=== PATIENT | female | born 1950 ===

== ENCOUNTER 2016-07-26 17:36 | Emergency (ER) | payer OTHER ==
[2016-07-26 18:06] VITALS: BMI 23.1
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
[2016-07-26] MEDS ORDERED: Tetanus/Diphtheria Toxoids 0.5 ml Syringe IM ONE ×2 (18:14→18:31)
[2016-07-26] MEDS ORDERED: Lidocaine 2% Inj (20ml) INFIL ONE (18:14)
[2016-07-26] MEDS ORDERED: Lidocaine 2% Inj (20ml) ONE (18:30)
--- NOTE | 2016-07-26 19:33 | CT ---
EXAM: CT Head Without Intravenous Contrast CLINICAL HISTORY: 65 years old, female; Injury or trauma; Fall; Initial encounter; Abrasion; Not specified TECHNIQUE: Axial computed tomography images of the head/brain without intravenous contrast. This CT exam was performed using one or more of the following dose reduction techniques: automated exposure control, adjustment of the mA and/or kV according to patient size, and/or use of iterative reconstruction technique. EXAM DATE/TIME: 07/26/2016 6:10 PM COMPARISON: There are no prior studies for comparison. FINDINGS: Brain: There is prominence of sulci, gyri and ventricles. There is no midline shift. There are no intra-axial or extra axial hemorrhage. There is 11 x 10.3 mm mass suggestive of aneurysm relating to the [place] on the left. There are no intra-axial masses. Velazquez-white differentiation is maintained. Ventricles: See above Bony structures: Cranial vault is intact. Soft tissues: There is left frontal scalp bruising with laceration. There are multiple skin basil. There is small amount of cutaneous emphysema. Vasculature: See above Sinuses: There is no acute sinusitis. Ears and mastoids: Middle ears and mastoids unremarkable. Orbits: Orbital contents are unremarkable. IMPRESSION: Scalp laceration, no acute intracranial injury; probable aneurysm relating to the [place] on the left, exact vessel of origin unclear MRA suggested for more complete evaluation as clinically indicated
[2016-07-26 20:35] VITALS: RESP 18; TEMP 98.1
[2016-07-26 20:36] VITALS: BP 126/80; PULSE 61
[2016-07-26 20:38] VITALS: O2SAT 100
== END 2016-07-26 20:45 | disposition left against medical advice (07) ==
LOC: C.ER 17:36
DX: S01.01XA Laceration without foreign body of scalp, initial encounter (principal); W22.8XXA Striking against or struck by other objects, initial encounter; I67.1 Cerebral aneurysm, nonruptured

== ENCOUNTER 2016-07-28 14:05 | Emergency (ER) | payer OTHER ==
[2016-07-28 14:06] VITALS: BMI 23.1
--- NOTE | 2016-07-28 15:33 | C.PDOC ---
History Of Present Illness 65 year old female presents to ED with complaints of frontal headache described as pulsating. Patient states she was seen in ED 2 days ago after head injury and had basil placed. Family at bedside state she had CT show aneurysm and the patient had refused admission at that time. Family requesting further evaluation and admission. Patient otherwise denies any other injury, numbness, weakness, dizziness, visual changes. Time Seen by Provider: 07/28/16 14:59 Chief Complaint (Nursing): Headache History Per: Patient History/Exam Limitations: no limitations Onset/Duration Of Symptoms: Days Current Symptoms Are (Timing): Still Present Quality: Other ("pulsating") Associated Symptoms: denies: Blurred Vision, Nausea, Vomiting Recent travel outside of the [place]: No Past Medical History Reviewed: Historical Data, Nursing Documentation, Vital Signs Vital Signs: Last Vital Signs Temp 98.0 F 07/28/16 16:53 Pulse 61 07/28/16 16:53 Resp 20 07/28/16 16:53 BP 137/83 07/28/16 16:53 Pulse Ox 96 07/28/16 17:04 - Medical History PMH: No Chronic Diseases Surgical History: Appendectomy Family History: States: Unknown Family Hx - Social History Hx Alcohol Use: Yes Hx Substance Use: No - Immunization History Hx Tetanus Toxoid Vaccination: Yes Hx Influenza Vaccination: No Hx Pneumococcal Vaccination: No Review Of Systems Except As Marked, All Systems Reviewed And Found Negative. Constitutional: Negative for: Fever, Chills Cardiovascular: Negative for: Chest Pain Respiratory: Negative for: Cough, Shortness of Breath, Wheezing Gastrointestinal: Negative for: Nausea, Vomiting, Abdominal Pain Skin: Negative for: Rash Neurological: Positive for: Headache. Negative for: Weakness, Numbness, Dizziness Physical Exam - Physical Exam Appears: Non-toxic, No Acute Distress Skin: Warm, Dry Head: Normacephalic, Other ([place] clean dry and intact to frontal scalp, mildly tender, no erythema, swelling or discharge.) Eye(s): bilateral: Normal Inspection, PERRL, EOMI Neck: No Midline Cervical Tenderness, No Paracervical Tenderness, Supple Chest: Symmetrical Cardiovascular: Rhythm Regular, No Murmur Respiratory: Normal Breath Sounds, No Rales, No Rhonchi, No Wheezing Gastrointestinal/Abdominal: Soft, No Tenderness Back: Normal Inspection Extremity: Normal ROM, Capillary Refill (< 2 sec.) Neurological/Psych: Oriented x3, Normal Speech, Normal Cognition, Normal Motor, Normal Sensation ED Course And Treatment - Laboratory Results Result Diagrams: 07/28/16 15:47 07/28/16 15:47 O2 Sat by Pulse Oximetry: 96 (RA) Pulse Ox Interpretation: Normal Medical Decision Making Medical Decision Making: Patient with head injury and incidental finding on CT. CT from 07/26/16 shows Scalp laceration, no acute intracranial injury; probable aneurysm relating to the [place] on the left, exact vessel of origin unclear. MRA ordered. Labs ordered and unremarkable. MRA shows large aneurysm which appears to arise posterior margin of the distal cavernous/supraclinoid carotid artery junction. Case discussed with DR Ragsdale who recommend neurosurgery consult. I called and spoke with Dr Lozano and discussed results. He states patient can follow up outpatient and recommended [facility]. Patient remained alert and oriented in no acute distress. Headache resolved, and pain is localized to site of laceration. I explained results and provided copy of reports to patient and family, HIPPA compliant. Patient verbalized understanding and stable for discharge Disposition Discussed With Dr.: Morgan Lozano Comment: Discussed MRA and CT result. He states if patient stable, no emergent intervention at this time. Patient can follow up outpatient with vascular neurosurgery and recommends [facility] Counseled Patient/Family Regarding: Studies Performed, Diagnosis, Need For Followup, Rx Given - Disposition Referrals: [facility] [Outside] Myron Alvarez [Other] Disposition: HOME/ ROUTINE Disposition Time: 16:59 Condition: STABLE Additional Instructions: Your MRI shows cerebral anuerysm It is important that you follow up with vascular neurosurgeon You may call fence supervisor service for any assistance [phone]. Alexander RM muestra aneurisma cerebral Es importante que usted siga con el neurocirujano vascular Usted puede llamar al servicio de conserjera para cualquier ayuda [phone]. 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 - Scribe Statement The provider has reviewed the documentation as recorded by the Scribe MELONIE MOUSSA All medical record entries made by the Scribe were at my direction and personally dictated by me. I have reviewed the chart and agree that the record accurately reflects my personal performance of the history, physical exam, medical decision making, and the department course for this patient. I have also personally directed, reviewed, and agree with the discharge instructions and disposition.
[2016-07-28 15:50] LABS: BASO # 0.1 K/uL (0.0-0.2); EOS # 0.1 K/uL (0.0-0.7); EOS % 2.3 % (0.0-4.0); LYMPH # 2.1 K/uL (1.0-4.3); LYMPH % 34.2 % (20.0-40.0); MEAN CELL VOLUME 92.1 fL (81.0-99.0); MEAN CORPUSCULAR HEMOGLOBIN 29.7 pg (27.0-31.0); MEAN CORPUSCULAR HGB CONC 32.3 g/dL (33.0-37.0); MEAN PLATELET VOLUME 9.3 fL (7.2-11.7); MONO # 0.5 K/uL (0.0-0.8); MONO % 7.8 % (0.0-10.0); RED CELL DISTRIBUTION WIDTH 13.6 % (11.5-14.5); WHITE BLOOD COUNT 6.2 K/uL (4.8-10.8)
[2016-07-28 15:58] LABS: INR 1.1
[2016-07-28 15:59] LABS: CHLORIDE 102 mmol/L (98-107); POTASSIUM 4.2 mmol/L (3.6-5.2); SODIUM 137 mmol/L (132-148)
[2016-07-28 16:01] LABS: BILIRUBIN,TOTAL 0.4 mg/dL (0.2-1.3); GFR AFRICAN-AMERICAN > 60
[2016-07-28 16:02] LABS: ALB/GLOB RATIO 1.6 (1.0-2.1); ALKALINE PHOSPHATASE 61 U/L (38-126); ALT/SGPT 26 U/L (9-52); AST/SGOT 24 U/L (14-36); BLOOD UREA NITROGEN 14 mg/dL (7-17); CALCIUM 8.9 mg/dl (8.6-10.4); CARBON DIOXIDE 27 mmol/L (22-30); GLUCOSE,RANDOM 83 mg/dL (65-105); TOTAL PROTEIN 7.1 g/dL (6.3-8.3)
--- NOTE | 2016-07-28 16:40 | MRI ---
PROCEDURE: Magnetic Resonance Angiography Brain HISTORY: Headache. History of Aneurysm seen on CT scan brain 2 days ago. COMPARISON: Comparison made with prior CT scan of the brain 07/26/2016 TECHNIQUE: 3D time of flight MR angiography of the intracranial arteries was performed. Rotating maximum intensity projection images were generated. FINDINGS: Findings: The current study re- demonstrates AP aneurysm, the neck of which appears to arise from the distal aspect posterior margin of the distal cavernous carotid/ supraclinoid carotid junction. . The dome projects posteriorly and somewhat superiorly. This aneurysm measures approximately 12 mm x 9.5 mm. . Findings discussed with emergency room LEONCIO iPña at approximately 4:30 p.m. with written down and read back verification. No other large aneurysms or vascular malformations. . The distal internal carotid arteries including the petrous, cavernous and supraclinoid segments are widely patent. The A1 and M1 segments as well as the anterior distal branches are patent and relatively symmetric. The distal vertebral arteries are relatively symmetric of the inner which appears more significantly dominant than the other. The basilar patent. The post cerebral arteries are relatively symmetric. Impression: Large aneurysm which appears to arise posterior margin of the distal cavernous/supraclinoid carotid artery junction as above. Emergency room staff aware.
[2016-07-28 16:54] VITALS: BP 137/83; PULSE 61; RESP 20; TEMP 98
[2016-07-28 17:03] VITALS: O2SAT 96
== END 2016-07-28 17:20 | disposition home or self-care (01) ==
LOC: C.ER 14:05
DX: I67.1 Cerebral aneurysm, nonruptured (principal)

== ENCOUNTER 2016-08-04 11:03 | Emergency (ER) | payer OTHER ==
[2016-08-04 11:03] VITALS: BMI 23.1
[2016-08-04 11:08] VITALS: BP 125/81; PULSE 71; TEMP 98.3; O2SAT 97
[2016-08-04 11:34] VITALS: RESP 18
--- NOTE | 2016-08-04 11:34 | C.PDOC ---
History Of Present Illness 65 yo female come in for scheduled wound check and basil removal after laceration was repaired here in ED on 07/26/16. At present time, pt denies severe headache, dizziness, visual changes, focal deficits, denies increase pain or wound draining. Ambulate to ED for evaluation, not ni any apparent distress. Time Seen by Provider: 08/04/16 11:14 Chief Complaint (Nursing): Suture/Staple Removal History Per: Patient Past Medical History Reviewed: Historical Data, Nursing Documentation, Vital Signs Vital Signs: Last Vital Signs Temp 98.3 F 08/04/16 11:08 Pulse 71 08/04/16 11:28 Resp 18 08/04/16 11:28 BP 125/81 08/04/16 11:08 Pulse Ox 97 08/04/16 11:42 - Medical History Other PMH: Brain aneurysm, recently diagnosed Surgical History: Appendectomy Family History: States: Unknown Family Hx - Social History Hx Alcohol Use: Yes Hx Substance Use: No - Immunization History Hx Tetanus Toxoid Vaccination: Yes Hx Influenza Vaccination: No Hx Pneumococcal Vaccination: No Review Of Systems Except As Marked, All Systems Reviewed And Found Negative. Constitutional: Negative for: Fever, Chills Eyes: Negative for: Vision Change Skin: Positive for: Lesions Neurological: Negative for: Weakness, Numbness, Altered Mental Status, Headache , Dizziness Physical Exam - Physical Exam Appears: Well, Non-toxic, No Acute Distress Skin: Normal Color, Warm Head: Normacephalic, Laceration (frontal scalp laceration closed with stpales appears clean, dry, intact. NO edema or erythema, no wound draining.) Eye(s): bilateral: PERRL Neurological/Psych: Oriented x3, Normal Speech, Normal Cognition ED Course And Treatment O2 Sat by Pulse Oximetry: 97 Progress Note: Wound was cleaned, basil removed in its entire. On re-eval, pt is afebrile, hemodynamicaly stable. Non-toxic. Neurologicaly intact. Pt advised and ref. to F/u with PMD and Neurology in 2-3 days for re-evaluation and further tx. return if any new changes. Disposition Counseled Patient/Family Regarding: Diagnosis, Need For Followup - Disposition Referrals: Clinic,Med Surg [Primary Care Provider] - Myron Haas MD [Staff Provider] - Disposition: HOME/ ROUTINE Disposition Time: 11:17 Condition: STABLE Instructions: Stitches Removal (ED) - Clinical Impression Clinical Impression: Removal of basil
== END 2016-08-04 11:35 | disposition home or self-care (01) ==
LOC: SUPCPDRO 11:03 → C.ER 11:03
DX: Z48.02 Encounter for removal of sutures (principal)

== ENCOUNTER → 2016-10-12 13:03 | Emergency (ER) | payer SELFPAY ==
[2016-10-12 13:03] VITALS: BMI 23.1
== END | disposition left against medical advice (07) ==
LOC: C.ER 13:03
DX: Z04.8 Encounter for examination and observation for other specified reasons (principal); Z02.9 Encounter for administrative examinations, unspecified

== ENCOUNTER 2017-01-26 22:06 | Emergency (ER) | payer OTHER ==
[2017-01-26 22:07] VITALS: BMI 23.1
[2017-01-26 22:16] VITALS: TEMP 98
--- NOTE | 2017-01-26 23:11 | C.PDOC ---
History Of Present Illness 66 year old female presents to the ED for evaluation of left knee pain which radiates down to left calf for 3-4 days. 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 Patient is unsure if she twisted her leg. She denies direct trauma/injury or extremity numbness/weakness. Time Seen by Provider: 01/26/17 22:22 Chief Complaint (Nursing): Lower Extremity Problem/Injury History Per: Patient History/Exam Limitations: no limitations Onset/Duration Of Symptoms: Days (3-4) Current Symptoms Are (Timing): Still Present Additional History Per: Patient - Knee Description Of Injury: Twisted Past Medical History Reviewed: Historical Data, Nursing Documentation, Vital Signs Vital Signs: Last Vital Signs Temp 98.0 F 01/26/17 22:10 Pulse 88 01/26/17 23:50 Resp 20 01/26/17 23:50 BP 128/72 01/26/17 23:50 Pulse Ox 98 01/27/17 06:48 - Medical History PMH: No Chronic Diseases Surgical History: Appendectomy Family History: States: Unknown Family Hx - Social History Hx Alcohol Use: Yes Hx Substance Use: No - Immunization History Hx Tetanus Toxoid Vaccination: Yes Hx Influenza Vaccination: No Hx Pneumococcal Vaccination: No Review Of Systems Musculoskeletal: Positive for: Other (left knee pain, left calf pain ) Neurological: Negative for: Weakness, Numbness Physical Exam - Physical Exam Appears: Non-toxic, No Acute Distress Skin: Normal Color, Warm, Dry Extremity: Normal ROM, Tenderness (posterior left knee ), Calf Tenderness (left) , Capillary Refill (less than 2 seconds ), No Deformity, Swelling (moderate to medial left knee ) Neurological/Psych: Oriented x3, Normal Speech, Normal Cognition, Normal Sensation Gait: Steady ED Course And Treatment O2 Sat by Pulse Oximetry: 98 (on RA) Pulse Ox Interpretation: Normal Medical Decision Making Medical Decision Making: left knee XR ordered, results are negative. Motrin PO administered. Ambulatory in the ED with steady gait. Unable to perform venous doppler study at this tme. Patient is advised to return to ED in the morning to have doppler performed. Disposition - Disposition Referrals: [facility] [Outside] Disposition: HOME/ ROUTINE Disposition Time: 23:05 Condition: STABLE Additional Instructions: RETURN TOMORROW FOR VENOUS DOPPLER to RULE OUT BLOOD CLOTS WITHOUT FAIL. 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 - Scribe Statement The provider has reviewed the documentation as recorded by the Scribe (Amber Selby) All medical record entries made by the Scribe were at my direction and personally dictated by me. I have reviewed the chart and agree that the record accurately reflects my personal performance of the history, physical exam, medical decision making, and the department course for this patient. I have also personally directed, reviewed, and agree with the discharge instructions and disposition.
[2017-01-27 00:02] VITALS: BP 128/72; PULSE 88; RESP 20
[2017-01-27 06:45] VITALS: O2SAT 98
--- NOTE | 2017-01-27 08:29 | RAD ---
PROCEDURE: Left Knee Radiographs. HISTORY: Pain. COMPARISON: None. FINDINGS: BONES: Anterior tibial plateau, medial tibial spine and posterior superior patellar spurring. No fracture. JOINTS: Medial femoral tibial mild osteo arthrosis JOINT EFFUSION: Small effusion probable OTHER FINDINGS: None. IMPRESSION: Arthrosis. Probable small effusion
== END 2017-01-26 23:59 | disposition home or self-care (01) ==
LOC: C.ER 22:06
DX: M25.562 Pain in left knee (principal)

== ENCOUNTER 2017-01-28 11:10 | Emergency (ER) | payer OTHER ==
[2017-01-28 11:10] VITALS: BMI 23.1
--- NOTE | 2017-01-28 12:09 | C.PDOC ---
History Of Present Illness Emelia Austin is a 66 y/o female returning to the ER for recommended Doppler US of Left lower leg. Pt admits, was seen here 2 days ago due to left knee pain and told to return the next day for venous doppler study to rule out DVT at the left lower extremity. Pt describes pain as mostly over left knee with intermittent radiation to left calf, worse with weight bearing. Otherwise, pt denies known trauma or injury, denies deformity, weakness, sensory or vascular deficits to left leg. Ambulate to ED for evaluation, not in any apparent distress. Time Seen by Provider: 01/28/17 11:45 Chief Complaint (Nursing): Lower Extremity Problem/Injury History Per: Patient History/Exam Limitations: no limitations Onset/Duration Of Symptoms: Days (x 2) Current Symptoms Are (Timing): Still Present Past Medical History Reviewed: Historical Data, Nursing Documentation, Vital Signs Vital Signs: Last Vital Signs Temp 98 F 01/28/17 11:38 Pulse 67 01/28/17 11:38 Resp 20 01/28/17 11:38 BP 132/85 01/28/17 11:38 Pulse Ox 98 01/28/17 13:06 Surgical History: Appendectomy Family History: States: Unknown Family Hx - Social History Hx Alcohol Use: Yes Hx Substance Use: No - Immunization History Hx Tetanus Toxoid Vaccination: Yes Hx Influenza Vaccination: No Hx Pneumococcal Vaccination: No Physical Exam - Physical Exam Appears: Well, Non-toxic, No Acute Distress Skin: Normal Color, Warm, No Rash, No Ecchymosis Oral Mucosa: Moist, No Drooling Neck: Trachea Midline, Supple Cardiovascular: Rhythm Regular, No JVD Respiratory: No Decreased Breath Sounds, No Accessory Muscle Use, No Stridor, No Wheezing Extremity: Normal ROM (Left LE), Tenderness (mild diffuse tenderness over Left knee, no deformity.), Calf Tenderness (Left), Capillary Refill (less than 2sec) , No Deformity, No Swelling Neurological/Psych: Oriented x3, Normal Speech, Normal Motor, Normal Sensation, Normal Reflexes ED Course And Treatment O2 Sat by Pulse Oximetry: 98 (RA) Pulse Ox Interpretation: Normal - CT Scan/US Doppler US Other Rad Studies (CT/US): Read By Radiologist CT/US Interpretation: (-) evidence of DVT over LLE. Progress Note: Ordered venous duplex scan of left lower extremity. On re- evaluation, pt is afebrile, hemodynamicaly stable. Non-toxic. Ambulatory in Ed with stale gait. NEck: SUpple. LLE: exam c/w knee tenderness/arthralgia, mild left calf pain. FAROM, no neurovascula deficits. Doppler US review (-) DVT. Pt ahs clinical finidngs c/w left knee arthralgia. Pt advised and ref. to f/u with PMD, Ortho in 2-3 days for re-eavl. reutrn to ED if any worsening or new changes. Disposition Counseled Patient/Family Regarding: Studies Performed, Diagnosis, Need For Followup - Disposition Referrals: [facility] [Outside] Siva Baker MD [Staff Provider] - Disposition: HOME/ ROUTINE Disposition Time: 13:06 Condition: STABLE Additional Instructions: MELODY WRAP NEED TO LEFT KNEE FOLLOW UP WITH PMD, ORTHOPEDIST IN 2-3 DAYS FOR RE-EVALUATION. RETURN TO ED IF ANY WORSENING OR NEW CHANGES. 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 - Scribe Statement The provider has reviewed the documentation as recorded by the Scribe (Patricia Knight) All medical record entries made by the Scribe were at my direction and personally dictated by me. I have reviewed the chart and agree that the record accurately reflects my personal performance of the history, physical exam, medical decision making, and the department course for this patient. I have also personally directed, reviewed, and agree with the discharge instructions and disposition.
[2017-01-28 14:03] VITALS: BP 132/84; PULSE 84; RESP 18; TEMP 98.2
[2017-01-28 14:04] VITALS: O2SAT 98
--- NOTE | 2017-01-31 09:35 | VASCLAB ---
PROCEDURE: Left Lower Extremity Venous Duplex Exam. HISTORY: calf pain, left PRIORS: None. TECHNIQUE: Left common femoral, femoral, popliteal and posterior tibial, peroneal and great saphenous veins were evaluated. Flow was assessed with color Doppler, compressibility, assessment of phasic flow and augmentation response. Report prepared by LORNE Velasquez, RVT FINDINGS: LEFT: 1. Common Femoral Vein: 1.1. Compressibility - Fully compressible: Thrombus - None : Flow - Phasic: Augmentation -Normal: Reflux - None. 2. Femoral Vein: 2.1. Compressibility - Fully compressible: Thrombus - None: Flow - Phasic: Augmentation -Normal: Reflux - None. 3. Popliteal Vein: 3.1. Compressibility - Fully compressible: Thrombus - None: Flow - Phasic: Augmentation -Normal: Reflux - None. 4. Posterior Tibial Vein: 4.1. Compressibility - Fully compressible: Thrombus - None: Flow - Phasic: Augmentation -Normal: Reflux - None. 5. Peroneal Vein: 5.1. Compressibility - Fully compressible: Thrombus - None: Flow - Phasic: Augmentation -Normal: Reflux - None. 6. Great Saphenous Vein: 6.1. Compressibility - Fully compressible: Thrombus - None: Flow - Phasic: Augmentation - Normal: Reflux - None. OTHER FINDINGS: Anechoic irregular shaped avascular structure noted in the left popliteal fossa, most compatible with a Kebede's cyst. IMPRESSION: No evidence of deep or superficial vein thrombosis of the left lower extremity with excellent venous flow. Normal valve function noted of the left side. Normal venous flow noted in the right common femoral vein.
== END 2017-01-28 14:03 | disposition home or self-care (01) ==
LOC: C.ER 11:10
DX: M25.562 Pain in left knee (principal)

== ENCOUNTER 2017-04-16 16:37 | Emergency (ER) | payer OTHER ==
[2017-04-16 16:48] VITALS: BMI 22.6
[2017-04-16 16:51] VITALS: RESP 16
--- NOTE | 2017-04-16 17:53 | RAD ---
PROCEDURE: Radiographs of the Right Shoulder HISTORY: Pain s/p fall yesterday COMPARISON: No prior. FINDINGS: BONES: No acute fracture. JOINTS: Unremarkable. SOFT TISSUES: Normal. OTHER FINDINGS: None. IMPRESSION: No demonstrated fracture or dislocation.
--- NOTE | 2017-04-16 18:28 | C.PDOC ---
History Of Present Illness Pt fell yesterday (after being pushed by a dog), injuring her right shoulder. Time Seen by Provider: 04/16/17 16:59 Chief Complaint (Nursing): Upper Extremity Problem/Injury History Per: Patient Onset/Duration Of Symptoms: Days (1) Current Symptoms Are (Timing): Still Present Quality: "Pain" Severity: Moderate Exacerbating Factor(s): Strenuous Use Of Affected Area, Movement Additional History Per: Prior Records Past Medical History Reviewed: Historical Data, Nursing Documentation, Vital Signs Vital Signs: Last Vital Signs Temp 98.2 F 04/16/17 16:48 Pulse 79 04/16/17 16:48 Resp 16 04/16/17 16:48 BP 133/78 04/16/17 16:48 Pulse Ox 99 04/16/17 16:48 - Medical History PMH: No Chronic Diseases Surgical History: Appendectomy Family History: States: Unknown Family Hx - Social History Hx Alcohol Use: Yes Hx Substance Use: No - Immunization History Hx Tetanus Toxoid Vaccination: Yes Hx Influenza Vaccination: No Hx Pneumococcal Vaccination: No Review Of Systems Except As Marked, All Systems Reviewed And Found Negative. Constitutional: Negative for: Fever, Weakness Cardiovascular: Negative for: Chest Pain Respiratory: Negative for: Shortness of Breath Gastrointestinal: Negative for: Vomiting, Abdominal Pain Musculoskeletal: Positive for: Shoulder Pain (right). Negative for: Neck Pain Skin: Negative for: Rash Neurological: Negative for: Weakness, Numbness, Seizures, Altered Mental Status , Headache Physical Exam - Physical Exam Appears: Non-toxic, No Acute Distress Skin: Normal Color, Warm, Dry, No Rash Head: Atraumatic, Normacephalic Eye(s): bilateral: Normal Inspection, PERRL, EOMI Neck: Normal ROM, No Midline Cervical Tenderness, No Step Off Deformity, Supple Chest: Symmetrical, No Deformity Cardiovascular: Rhythm Regular Respiratory: Normal Breath Sounds, No Accessory Muscle Use Gastrointestinal/Abdominal: Soft, No Tenderness Back: No CVA Tenderness, No Vertebral Tenderness Extremity: Normal ROM (but painful in right shoulder), Tenderness (mild, nonspecific right), No Deformity, No Swelling Extremity: Bilateral: Normal Color And Temperature Pulses: Right Radial: Normal Neurological/Psych: Oriented x3, Normal Motor, Normal Sensation ED Course And Treatment O2 Sat by Pulse Oximetry: 99 Pulse Ox Interpretation: Normal - Other Rad Right shoulder x-rays X-Ray: Viewed By Me, Read By Radiologist Interpretation: IMPRESSION: No demonstrated fracture or dislocation. Progress Note: Pt's right arm was placed in sling. Reassessment Condition: Improved Disposition Counseled Patient/Family Regarding: Studies Performed, Diagnosis, Need For Followup, Rx Given - Disposition Referrals: Jay Wolfe III, MD [Staff Provider] - Disposition: HOME/ ROUTINE Disposition Time: 18:30 Condition: IMPROVED Additional Instructions: Use sling as instructed. Follow up with an orthopedic doctor if still symptomatic in 1 week. Return to the ER if you develop redness, swelling, worsening of symptoms or if you have any other concerns. Prescriptions: Acetaminophen [Tylenol Extra Strength] 2 tab PO Q6 PRN #30 tablet PRN Reason: Pain, Moderate (4-7) Instructions: Shoulder Sprain (DC), How to Use a Shoulder Sling Forms: [employer] (Citizen Of [place]), Work Excuse Print Language: CHINESE - Clinical Impression Clinical Impression: Right shoulder injury
[2017-04-16 18:43] VITALS: BP 131/84; PULSE 65; TEMP 98.3; O2SAT 100
== END 2017-04-16 18:43 | disposition home or self-care (01) ==
LOC: C.ER 16:37
DX: S49.91XA Unspecified injury of right shoulder and upper arm, initial encounter (principal); W18.39XA Other fall on same level, initial encounter; Y92.89 Other specified places as the place of occurrence of the external cause